=== PATIENT | male | born 1990 | race Two or more races ===

== ENCOUNTER 2022-10-14 03:38 | Emergency (ER) | payer SELFPAY ==
[~2022-10-14] VITALS: Ht 172.7 cm; Wt 77.0 kg
[2022-10-14 04:46] LABS: Basophils # (auto) 0 10 ^3/uL (0-0.2); Basophils % (auto) 0.3 % (0.0-2.0); Eosinophils # (auto) 0.1 10 ^3/uL (0-0.8); Eosinophils % (auto) 2.4 % (0.0-7.0); Hematocrit 41.7 % (41.0-53.0); Hemoglobin 14.6 g/dL (13.5-17.5); Lymphocytes # (auto) 0.9 10 ^3/uL (0.4-5.4); Lymphocytes % (auto) 25.5 % (10.0-50.0); Mean Corpuscular Hemoglobin 28.7 pg (28.0-32.0); Monocytes # (auto) 0.6 10 ^3/uL (0-1.3); Monocytes % (auto) 15.5 % (0.0-12.0); Neutrophils # (auto) 2.1 10 ^3/uL (1.6-8.6); Neutrophils % (auto) 56.3 % (37.0-80.0); Nucleated Red Blood Cells % 0.6 %; Red Blood Cells 5.08 10^6/uL (4.5-5.90); Red Cell Distribution Width 14.8 % (11.8-14.3); White Blood Cell 3.7 10^3/uL (4.4-10.8)
[2022-10-14 05:01] LABS: INR 0.92 (0.9-1.15); Partial Thromboplastin Time 28.2 sec (24.6-33.4)
[2022-10-14 05:03] LABS: Albumin 3.2 g/dL (3.4-5.0); Calcium 7.7 mg/dL (8.5-10.1); Potassium 3.9 mmol/L (3.5-5.1)
[2022-10-14 05:07] LABS: Bilirubin, Total 0.2 mg/dL (0.2-1.0); Total Protein 6.9 g/dL (6.4-8.2)
[2022-10-14] MEDS ORDERED: HYDROcodone-ACET 10/325MG TAB PO ONE (06:45)
[2022-10-14] MEDS ORDERED: HYDR-4902 PO (07:06)
[2022-10-14 09:40] VITALS: BP 107/73
== END 2022-10-14 09:52 | disposition home or self-care (01) ==
LOC: ER 03:38 → EDBD 03:38 → ER 09:46
DX: B34.9 Viral infection, unspecified (principal); F12.90 Cannabis use, unspecified, uncomplicated
CPT/HCPCS: 36415; 71045; 80053; 83735; 83880; 84484; 85025; 85610; 85730; 93005

== ENCOUNTER 2023-12-12 13:07 | Emergency (ER) | payer MEDICAID, OTHER ==
[~2023-12-12] VITALS: Ht 172.7 cm; Wt 72.7 kg
[~2023-12-12 13:07] MED LIST: HYDR-4902 PO
[2023-12-12 13:15] VITALS: BP 135/67; PULSE 117; RESP 18; O2SAT 96
[2023-12-12 13:31] LABS: Basophils # (auto) 0 10 ^3/uL (0-0.2); Basophils % (auto) 0.3 % (0.0-2.0); Eosinophils # (auto) 0 10 ^3/uL (0-0.8); Eosinophils % (auto) 0.1 % (0.0-7.0); Hematocrit 38.9 % (41.0-53.0); Hemoglobin 13.3 g/dL (13.5-17.5); Lymphocytes # (auto) 0.8 10 ^3/uL (0.4-5.4); Lymphocytes % (auto) 4.3 % (10.0-50.0); Mean Corpuscular Hemoglobin 29.3 pg (28.0-32.0); Mean Corpuscular Hgb Conc. 34.2 g/dL (32.0-36.0); Mean Corpuscular Volume 85.7 fL (80.0-100.0); Monocytes # (auto) 1.1 10 ^3/uL (0-1.3); Monocytes % (auto) 6.3 % (0.0-12.0); Neutrophils # (auto) 15.6 10 ^3/uL (1.6-8.6); Red Blood Cells 4.53 10^6/uL (4.5-5.90); White Blood Cell 17.5 10^3/uL (4.4-10.8)
[2023-12-12 13:47] LABS: Alanine Aminotransferase 26 U/L (7-40); Alkaline Phosphatase 82 U/L (46-116); Anion Gap 8 (5-15); Aspartate Aminotransferase 25 U/L (13-40); BUN/Creatinine Ratio 8.8 (10.0-20.0); Blood Urea Nitrogen 8 mg/dL (9-23); Calcium 8.5 mg/dL (8.5-10.1); Carbon Dioxide 23 mmol/L (20-30); Chloride 103 mmol/L (98-107); Glucose 161 mg/dL (74-106); Potassium 3.6 mmol/L (3.5-5.1); Sodium 134 mmol/L (136-145)
[2023-12-12 13:48] LABS: Albumin 4.1 g/dL (3.2-4.8); Bilirubin, Total 0.8 mg/dL (0.2-1.0); Total Protein 7.1 g/dL (5.7-8.2)
[2023-12-12 13:49] LABS: INR 0.97 (0.9-1.15); Partial Thromboplastin Time 26.2 SEC (24.5-34.5); Prothrombin Time 10.3 sec (9.3-11.8)
== END 2023-12-12 14:26 | disposition left against medical advice (07) ==
LOC: ER 13:07
DX: R07.9 Chest pain, unspecified (principal); Z53.21 Procedure and treatment not carried out due to patient leaving prior to being seen by health care provider
CPT/HCPCS: 36415; 71045; 80053; 84484; 85025; 85610; 85730; 93005

== ENCOUNTER 2024-07-03 00:04 | Emergency (ER) | payer MEDICAID ==
[~2024-07-03] VITALS: Ht 172.7 cm; Wt 77.4 kg
--- NOTE | 2024-07-03 00:31 | ED.PDOC ---
History of Present Illness HPI Comments 33-year-old male who came to ER via EMS for nausea and vomiting. Patient states for the past 3 weeks he has been having episodes of nausea and vomiting, unable to keep anything in. Patient was also having hiccups as well. Few days ago patient started having shortness of breath. Patient coming to the ER for further evaluation management. Patient does have complaining of cellulitis, swelling, inflammation over his right butt cheek. Patient appears very anxious at this time. Chief Complaint: Nausea/Vomiting Time Seen by MD: 00:30 Primary Care Provider: UNKNOWN Reviewed Notes: Nurses Notes Allergies: Coded Allergies: NO KNOWN ALLERGIES (Unverified , 10/14/22) Home Meds Active Scripts Hydrocodone-Acetaminophen (Hydrocodone Bitartrate/AC 5-325 mg) 1 Tab Tab, 1 TAB PO DAILY for 5 Days, #5 TAB Prov:JENAE JONES MD 10/14/22 Information Source: Patient Mode of Arrival: EMS Severity: Moderate Timing: Days Duration: Intermittent Past Medical History PAST MEDICAL HISTORY: Denies Surgical History: Denies all surgeries Family History Family History: Reviewed,noncontributory to illness Social History Smoker: Non-Smoker Alcohol: Denies ETOH Use Drugs: Denies Drug Use Lives In: Home Constitutional: denies: chills, diaphoresis, fatigue, fever, malaise, sweats, weakness, others EENTM: denies: blurred vision, double vision, ear bleeding, ear discharge, ear drainage, ear pain, ear ringing, eye pain, eye redness, hearing loss, mouth pain, mouth swelling, nasal discharge, nose bleeding, nose congestion, nose pain, photophobia, tearing, throat pain, throat swelling, voice changes, others Respiratory: reports: SOB at rest, shortness of breath; denies: cough, hemoptysis, orthopnea, SOB with excertion, stridor, wheezing, others Cardiovascular: denies: chest pain, dizzy spells, diaphoresis, Dyspnea on exertion, edema, irregular heart beat, left arm pain, lightheadedness, palpitations, PND, syncope, others Gastrointestinal: reports: nausea, vomiting; denies: abdomen distended, abdominal pain, blood streaked bowels, constipated, diarrhea, dysphagia, difficulty swallowing, hematemesis, melena, poor appetite, poor fluid intake, rectal bleeding, rectal pain, others Genitourinary: denies: burning, dysuria, flank pain, frequency, hematuria, incontinence, penile discharge, penile sore, pain, testicle pain, testicle swelling, urgency, others Neurological: denies: dizziness, fainting, headache, left sided numbness, left sided weakness, numbness, paresthesia, pre-existing deficit, right sided numbness, right sided weakness, seizure, speech problems, tingling, tremors, weakness, others Musculoskeletal: denies: back pain, gout, joint pain, joint swelling, muscle pain, muscle stiffness, neck pain, others Integumetry: denies: bruises, change in color, change in hair/nails, dryness, laceration, lesions, lumps, rash, wounds, others Allergic/Immunocompromised: denies: Difficulty Healing, Frequent Infections, Hives, Itching, others Hematologic/Lymphatic: denies: anemia, blood clots, easy bleeding, easy bruising, swollen glands, others Endocrine: denies: excessive hunger, excessive sweating, excessive thirst, excessive urination, flushing, intolerance to cold, intolerance to heat, unexplained weight gain, unexplained weight loss, others Psychiatric: reports: anxiety; denies: bipolar disorder, depression, hopeless, panic disorder, schizophrenia, sleepless, suicidal, others Physical Exam General Appearance: No Apparent Distress, Normal HEENT: Normal ENT Inspection, Pharynx Normal, TMs Normal Neck: Full Range of Motion, Non-Tender, Normal, Normal Inspection Respiratory: Chest Non-Tender, Lungs Clear, No Accessory Muscle Use, No Respiratory Distress, Normal Breath Sounds Cardiovascular: No Edema, No JVD, No Murmur, No Gallop, Normal Peripheral Pulses, Regular Rate/Rhythm Breast Exam: Deferred Gastrointestinal: No Organomegaly, Non Tender, No Pulsatile Mass, Normal Bowel Sounds, Soft Genitalia: Deferred Pelvic: Deferred Rectal: Deferred Extremities: No calf tenderness, Normal capillary refill, Normal inspection, Normal range of motion, Non-tender, No pedal edema Musculoskeletal : Apperance: Normal Neurologic: Alert, filter press pumper II-XII nml as Tested, No Motor Deficits, Normal Affect, Normal Mood, No Sensory Deficits Cerebellar Function: Normal Reflexes: Normal Skin: Dry, Normal Color, Warm, Other (Cellulitis right butt cheek) Lymphatic: No Adenopathy Was a procedure done? Was a procedure done?: No Differential Dx Considerations may include: Gastritis, dehydration, GERD, anxiety X-Ray, Labs, Meds, VS Vital Signs Date Time Temp Pulse Resp B/P (MAP) Pulse Ox O2 Delivery O2 Flow Rate FiO2 07/03/24 00:35 98.7 87 18 139/60 (86) 97 98.7 07/03/24 00:14 100.0 98 16 138/73 (94) 100 Current Medications Medications (Trade) Dose Ordered Sig/Erin Route Start Time Stop Time Status Last Admin Ondansetron HCl (Zofran Po) 4 mg ONCE ONCE PO 07/03/24 00:30 07/03/24 00:31 DC 07/03/24 00:47 Trimethoprim/ Sulfamethoxazole (Bactrim Ds Tablet) 1 tab ONCE ONCE PO 07/03/24 00:30 07/03/24 00:31 DC 07/03/24 00:48 Time of 1ST Reevaluation: 00:26 Reevaluation 1ST: Unchanged Patient Education/Counseling: Diagnosis, Treatment Family Education/Counseling: No Family Present Departure 1 Departure Time of Disposition: 01:09 (Patient has cellulitis on his buttock and likely suffering for acid reflux. We will discharge patient home) Impression: Primary Impression: Cellulitis Qualified Codes: L03.317 - Cellulitis of buttock Additional Impression: Acid reflux Qualified Codes: K21.9 - Gastro-esophageal reflux disease without esophagitis Disposition: 01 HOME / SELF CARE / HOMELESS Condition: Stable Additional Instructions: You have cellulitis. This is a skin infection. You were prescribed antibiotics. Please take as directed. You can take tylenol and motrin as needed for pain. You also likely have acid reflux that is causing hiccups. It is important that you follow up with your regular doctor within one week to ensure you are doing well. If your symptoms worsen or you have any other concerns then please return to the ER. e-Prescriptions Omeprazole Magnesium (Omeprazole) 20 Mg Tab 20 MG PO DAILY for 14 Days, #14 TAB Prov: MO HASSAN MD 07/03/24 Sulfamethoxazole W/Trimethopri (Bactrim Ds Tablet) 1 Tab Tb 1 TAB PO BID for 7 Days, #14 TAB Prov: MO HASSAN MD 07/03/24 Discharged With: Self Critical Care Note Critical Care Time?: No Stability Stability form required: No Heart Score Heart Score: Heart Score Response (Comments) Value History N/A 0 EKG N/A 0 Age N/A 0 Risk Factors N/A 0 Troponin N/A 0 Total 0 I personally scribed for MO HASSAN MD ([email or web address]) on 07/03/24 at 00:31. Electronically submitted by Irineo Connelly ([email or web address]). MO HASSAN MD Jul 03, 2024 00:31
[2024-07-03 00:35] VITALS: BP 139/60; PULSE 87; RESP 18; TEMP 98.7; O2SAT 97
[2024-07-03] MEDS: ONDANSETRON ODT 4 MG TAB PO ONE (00:47)
[2024-07-03] MEDS: SULFAMETHOX W/TRIMETH(800/160MG) DS TAB PO ONE (00:48)
--- NOTE | 2024-07-03 01:04 | DVH ---
Procedure: XY CHEST TWO VIEWS ROUTINE 07/03/2024 12:40 AM Indication: sob. Comparison: None TECHNIQUE: XY CHEST TWO VIEWS ROUTINE FINDINGS: Medical devices: None. Cardiomediastinal: The heart is normal in size. Pulmonary vasculature is within normal limits. Lungs: No focal pulmonary opacity is seen. The costophrenic angles are clear. No pneumothorax. Bones/soft tissues: No acute abnormality is noted. IMPRESSION: No acute cardiopulmonary disease.
[2024-07-03] MEDS ORDERED: OMEP-434 PO (01:13)
[2024-07-03] MEDS ORDERED: BACDST PO (01:13)
[2024-07-03] MEDS ORDERED: OMEPRAZOLE-SOD BICARB 20 MG POWDER PO SCH ×3 (01:15→10:00)
[2024-07-03] MEDS: PANTOPRAZOLE 40 MG TAB PO ONE (01:39)
[2024-07-04] MEDS ORDERED: CLIN150C18 PO (13:55)
[2024-07-04] MEDS ORDERED: SUCR1TAB PO (14:35)
[2024-07-04] MEDS ORDERED: PANT40T PO (14:39)
== END 2024-07-03 01:49 | disposition home or self-care (01) ==
LOC: ER 00:04 → EDBD 00:04 → ER 01:49
DX: L03.317 Cellulitis of buttock (principal); K21.9 Gastro-esophageal reflux disease without esophagitis
CPT/HCPCS: 71046; 99284; Q0162

== ENCOUNTER 2024-07-03 02:16 | Inpatient (IN) | payer MEDICAID ==
[~2024-07-03] VITALS: Ht 172.7 cm; Wt 78.2 kg
[2024-07-03] VITALS (7 sets, daily range): BP systolic 116–152; BP diastolic 66–86; PULSE 75–96; RESP 12–20; TEMP 99.2–99.8; O2SAT 91–100
[~2024-07-03 02:16] MED LIST changes: +BACDST PO; +OMEP-434 PO
--- NOTE | 2024-07-03 02:41 | ED.PDOC ---
History of Present Illness HPI Comments 23-year-old male who came to ER for nausea and vomiting. Patient was just discharged here about an hour ago for similar complaints, diagnosed with GERD, and cellulitis of right buttocks. As patient was waiting at the ER lobby, he started feeling anxious, became short of breath again, started having intractable hiccups, and was vomiting blackish liquid. Chief Complaint: Nausea/Vomiting Time Seen by MD: 02:41 Primary Care Provider: UNKNOWN Reviewed Notes: Nurses Notes Allergies: Coded Allergies: NO KNOWN ALLERGIES (Unverified , 10/14/22) Home Meds Active Scripts Omeprazole Magnesium (Omeprazole) 20 Mg Tab, 20 MG PO DAILY for 14 Days, #14 TAB Prov:MO HASSAN MD 07/03/24 Sulfamethoxazole W/Trimethopri (Bactrim Ds Tablet) 1 Tab Tb, 1 TAB PO BID for 7 Days, #14 TAB Prov:MO HASSAN MD 07/03/24 Hydrocodone-Acetaminophen (Hydrocodone Bitartrate/AC 5-325 mg) 1 Tab Tab, 1 TAB PO DAILY for 5 Days, #5 TAB Prov:JENAE JONES MD 10/14/22 Information Source: Patient Mode of Arrival: Ambulatory Severity: Moderate Timing: Hours Duration: Since onset Prehospital treatment: None Past Medical History PAST MEDICAL HISTORY: HIV Surgical History: Denies all surgeries Family History Family History: Reviewed,noncontributory to illness Social History Smoker: Non-Smoker Alcohol: Denies ETOH Use Drugs: Denies Drug Use Lives In: Home Constitutional: denies: chills, diaphoresis, fatigue, fever, malaise, sweats, weakness, others EENTM: denies: blurred vision, double vision, ear bleeding, ear discharge, ear drainage, ear pain, ear ringing, eye pain, eye redness, hearing loss, mouth pain, mouth swelling, nasal discharge, nose bleeding, nose congestion, nose pain, photophobia, tearing, throat pain, throat swelling, voice changes, others Respiratory: reports: SOB at rest, shortness of breath; denies: cough, hemoptysis, orthopnea, SOB with excertion, stridor, wheezing, others Cardiovascular: denies: chest pain, dizzy spells, diaphoresis, Dyspnea on exer tion, edema, irregular heart beat, left arm pain, lightheadedness, palpitations, PND, syncope, others Gastrointestinal: reports: nausea, vomiting, others (Hiccups); denies: abdomen distended, abdominal pain, blood streaked bowels, constipated, diarrhea, dysphagia, difficulty swallowing, hematemesis, melena, poor appetite, poor fluid intake, rectal bleeding, rectal pain Genitourinary: denies: burning, dysuria, flank pain, frequency, hematuria, incontinence, penile discharge, penile sore, pain, testicle pain, testicle swelling, urgency, others Neurological: denies: dizziness, fainting, headache, left sided numbness, left sided weakness, numbness, paresthesia, pre-existing deficit, right sided numbness, right sided weakness, seizure, speech problems, tingling, tremors, weakness, others Musculoskeletal: denies: back pain, gout, joint pain, joint swelling, muscle pa in, muscle stiffness, neck pain, others Integumetry: denies: bruises, change in color, change in hair/nails, dryness, laceration, lesions, lumps, rash, wounds, others Allergic/Immunocompromised: denies: Difficulty Healing, Frequent Infections, Hives, Itching, others Hematologic/Lymphatic: denies: anemia, blood clots, easy bleeding, easy bruising, swollen glands, others Endocrine: denies: excessive hunger, excessive sweating, excessive thirst, excessive urination, flushing, intolerance to cold, intolerance to heat, unexplained weight gain, unexplained weight loss, others Psychiatric: reports: anxiety; denies: bipolar disorder, depression, hopeless, panic disorder, schizophrenia, sleepless, suicidal, others Physical Exam General Appearance: No Apparent Distress, Normal HEENT: Normal ENT Inspection, Pharynx Normal, TMs Normal Neck: Full Range of Motion, Non-Tender, Normal, Normal Inspection Respiratory: Chest Non-Tender, Lungs Clear, No Accessory Muscle Use, No Respiratory Distress, Normal Breath Sounds Cardiovascular: No Edema, No JVD, No Murmur, No Gallop, Normal Peripheral Pulses, Regular Rate/Rhythm Breast Exam: Deferred Gastrointestinal: No Organomegaly, Non Tender, No Pulsatile Mass, Normal Bowel Sounds, Soft Genitalia: Deferred Pelvic: Deferred Rectal: Deferred Extremities: No calf tenderness, Normal capillary refill, Normal inspection, Normal range of motion, Non-tender, No pedal edema Musculoskeletal : Apperance: Normal Neurologic: Alert, news assistant II-XII nml as Tested, No Motor Deficits, Normal Affect, Normal Mood, No Sensory Deficits Cerebellar Function: Normal Reflexes: Normal Skin: Dry, Normal Color, Warm, Other (Cellulitis right buttocks) Lymphatic: No Adenopathy Was a procedure done? Was a procedure done?: No Differential Dx Considerations may include: Gastritis, GERD, anxiety, shortness of breath X-Ray, Labs, Meds, VS Vital Signs Date Time Temp Pulse Resp B/P (MAP) Pulse Ox O2 Delivery O2 Flow Rate FiO2 07/03/24 03:00 98.9 82 20 111/82 (92) 96 98.9 07/03/24 03:00 82 20 96 Room Air* 0 21 07/03/24 02:32 99.0 78 20 107/78 (88) 95 Lab Test 07/03/24 02:47 Range/Units White Blood Count 10.2 4.4-10.8 10^3/uL Red Blood Count 4.38 L 4.5-5.90 10^6/uL Hemoglobin 12.1 L 13.5-17.5 g/dL Hematocrit 36.2 L 41.0-53.0 % Mean Corpuscular Volume 82.6 80.0-100.0 fL Mean Corpuscular Hemoglobin 27.6 L 28.0-32.0 pg Mean Corpuscular Hemoglobin Concent 33.4 32.0-36.0 g/dL Red Cell Distribution Width 16.6 H 11.8-14.3 % Platelet Count 433 140-450 10^3/uL Mean Platelet Volume 7.0 6.9-10.8 fL Neutrophils (%) (Auto) 66.7 37.0-80.0 % Lymphocytes (%) (Auto) 21.2 10.0-50.0 % Monocytes (%) (Auto) 9.8 0.0-12.0 % Eosinophils (%) (Auto) 2.1 0.0-7.0 % Basophils (%) (Auto) 0.2 0.0-2.0 % Neutrophils # (Auto) 6.8 1.6-8.6 10 ^3/uL Lymphocytes # (Auto) 2.2 0.4-5.4 10 ^3/uL Monocytes # (Auto) 1.0 0-1.3 10 ^3/uL Eosinophils # (Auto) 0.2 0-0.8 10 ^3/uL Basophils # (Auto) 0 0-0.2 10 ^3/uL Nucleated Red Blood Cells 0.0 % Sodium Level 133 L 136-145 mmol/L Potassium Level 4.3 3.5-5.1 mmol/L Chloride Level 103 98-107 mmol/L Carbon Dioxide Level 26 20-31 mmol/L Anion Gap 4 L 5-15 Blood Urea Nitrogen 11 9-23 mg/dL Creatinine 0.83 0.700-1.30 mg/dL Glomerular Filtration Rate Calc 117 >90 mL/min BUN/Creatinine Ratio 13.3 10.0-20.0 Serum Glucose 96 74-106 mg/dL Calcium Level 9.0 8.7-10.4 mg/dL Current Medications Medications (Trade) Dose Ordered Sig/Erin Route Start Time Stop Time Status Last Admin Haloperidol Lactate (Haldol) 10 mg ONCE ONCE IM 07/03/24 02:45 07/03/24 02:46 DC 07/03/24 03:03 Time of 1ST Reevaluation: 02:38 Reevaluation 1ST: Unchanged Patient Education/Counseling: Diagnosis, Treatment Family Education/Counseling: No Family Present Departure 1 Departure Time of Disposition: 03:30 (Patient presented here earlier for nausea and vomiting. Patient was initially discharged home. Patient returns still unable to tolerate p.o.. Patient will be admitted for intractable nausea and vomiting) Impression: Primary Impression: Projectile vomiting with nausea Additional Impression: Intractable hiccups Disposition: ADMITTED INPATIENT Admit to: Med Surg Condition: Serious Critical Care Note Critical Care Time?: No Stability Stability form required: No Heart Score Heart Score: Heart Score Response (Comments) Value History N/A 0 EKG N/A 0 Age N/A 0 Risk Factors N/A 0 Troponin N/A 0 Total 0 I personally scribed for MO HASSAN MD ([email or web address]) on 07/03/24 at 02:41. Electronically submitted by Irineo Connelly ([email or web address]). MO HASSAN MD Jul 03, 2024 02:41
[2024-07-03] MEDS: HALOPERIDOL LACTATE 5 MG/ML INJ VIAL IM ONE (03:03)
[2024-07-03 03:18] LABS: Chloride 103 mmol/L (98-107); Potassium 4.3 mmol/L (3.5-5.1); Sodium 133 mmol/L (136-145)
[2024-07-03 03:19] LABS: Anion Gap 4 (5-15); Basophils # (auto) 0 10 ^3/uL (0-0.2); Basophils % (auto) 0.2 % (0.0-2.0); Carbon Dioxide 26 mmol/L (20-31); Eosinophils # (auto) 0.2 10 ^3/uL (0-0.8); Eosinophils % (auto) 2.1 % (0.0-7.0); Hematocrit 36.2 % (41.0-53.0); Hemoglobin 12.1 g/dL (13.5-17.5); Lymphocytes # (auto) 2.2 10 ^3/uL (0.4-5.4); Lymphocytes % (auto) 21.2 % (10.0-50.0); Mean Corpuscular Hemoglobin 27.6 pg (28.0-32.0); Mean Corpuscular Hgb Conc. 33.4 g/dL (32.0-36.0); Mean Corpuscular Volume 82.6 fL (80.0-100.0); Monocytes % (auto) 9.8 % (0.0-12.0); Neutrophils # (auto) 6.8 10 ^3/uL (1.6-8.6); Neutrophils % (auto) 66.7 % (37.0-80.0); Platelet Count (auto) 433 10^3/uL (140-450); Red Blood Cells 4.38 10^6/uL (4.5-5.90); Red Cell Distribution Width 16.6 % (11.8-14.3); White Blood Cell 10.2 10^3/uL (4.4-10.8)
[2024-07-03 03:24] LABS: BUN/Creatinine Ratio 13.3 (10.0-20.0); Blood Urea Nitrogen 11 mg/dL (9-23); Glucose 96 mg/dL (74-106)
[2024-07-03] MEDS: SODIUM CHLORIDE 0.9% 1,000 ML IV SCH (04:45)
[2024-07-03] MEDS ORDERED: NITROGLYCERIN 0.4 MG SL TAB SL PRN (04:45)
[2024-07-03] MEDS ORDERED: ACETAMINOPHEN 325 MG TAB PO PRN (04:45)
[2024-07-03] MEDS ORDERED: ONDANSETRON HCL 4 MG/2 ML VIAL IV PRN (04:45)
[2024-07-03] MEDS ORDERED: MORPHINE SULFATE INJ 2 MG/ml SYRG IV PRN ×2 (04:45)
--- NOTE | 2024-07-03 04:57 | DVHHPRES ---
History of Present Illness Resident Creating Document: IFEOMA GUEVARA RESIDENT History of Present Illness ZACK ALANIS is a 33 years old male with PMH of HIV and syphilis presented to the ED with the complaints of severe acid reflux with nausea for 3 weeks. Patient reported he has been having severe acid reflux associated with hiccups, nausea and vomiting, sometimes dark vomitus which prompted him to visit ED. patient also reported he has been having swelling on right buttock which is painful. On my assessment patient denies fever, chills, chest pain, diarrhea and other acute associated symptoms. Patient presented here earlier for nausea and vomiting, initially discharged home. Patient returns because still unable to tolerate p.o. Past Medical History HIV syphilis Past Surgical History: None Family History: None Past Social History Lives with mom. Smokes marijuana but denies alcohol and tobacco abuse. Former methamphetamine abuser stopped 6 months ago Review of Systems Constitutional: No: Fever, Chills, Sweats, Weakness, Malaise, Other Eyes: No: Pain, Vision change, Conjunctivae inflammation, Eyelid inflammation, Other, Redness ENT: Other (Hiccups); No: Ear pain, Ear discharge, Nose pain, Nose discharge, Nose congestion, Mouth pain, Mouth swelling, Throat pain, Throat swelling Respiratory: Other; No: Cough, Dry, Shortness of breath, SOB with excertion, Wheezing, Hemoptysis, Pleuritic Pain, Sputum, Wheezing Cardiovascular: No: Chest Pain, Palpitations, Orthopnea, Paroxysmal Noc. Dyspnea, Edema, Lt Headedness, Other Gastrointestinal: Nausea, Vomiting, Other (Heartburn) Genitourinary: No Dysuria, No Frequency, No Incontinence, No Hematuria, No Retention, No Other Musculoskeletal: No: other, neck pain, shoulder pain, arm pain, back pain, hand pain, leg pain, foot pain Skin: Other (Right buttock abscess) Allergies: Coded Allergies: NO KNOWN ALLERGIES (Unverified , 10/14/22) Medications Current Medications Medications Dose Ordered Sig/Erin Route Start Time Stop Time Status Last Admin Dose Admin Sodium Chloride 1,000 ml @ 60 mls/hr [id number] IV 07/03/24 04:45 Ondansetron HCl 4 mg Q4HP PRN IV 07/03/24 04:45 Acetaminophen 650 mg Q6HP PRN PO 07/03/24 04:45 Morphine Sulfate 2 mg Q4HPRN PRN IV 07/03/24 04:45 Nitroglycerin 0.4 mg Q5MINP PRN SL 07/03/24 04:45 Morphine Sulfate 2 mg Q30M PRN IV 07/03/24 04:45 Pantoprazole Sodium 40 mg BID IV 07/03/24 04:45 UNV Exam Vital Signs Vital Signs Date Time Temp Pulse Resp B/P (MAP) Pulse Ox O2 Delivery O2 Flow Rate FiO2 07/03/24 04:28 82 20 96 Room Air* 0 21 07/03/24 03:00 98.9 111/82 (92) 98.9 Exam Pt is lying on bed General Appearance: Alert, Oriented X3, Cooperative, Not in acute distress HEENT: Atraumatic, Mucous membranes moist/pink Respiratory: Clear to auscultation, Normal air movement, No added sounds Cardiovascular: Regular rate, Normal S1, Normal S2, No murmurs Abdominal: Active bowel sounds, Soft, no distention, no tenderness Extremities: No edema, Normal pulses, No tenderness/swelling Skin: Swelling in the left buttock, tender, erythema, warmth Neuro: Normal speech, sensorimotor deficits none Psych/Mental Status: Mental status NL, Mood NL Nurse was there as sharperone during examination Labs/Xrays Labs Test 07/03/24 02:47 Range/Units White Blood Count 10.2 4.4-10.8 10^3/uL Red Blood Count 4.38 L 4.5-5.90 10^6/uL Hemoglobin 12.1 L 13.5-17.5 g/dL Hematocrit 36.2 L 41.0-53.0 % Mean Corpuscular Volume 82.6 80.0-100.0 fL Mean Corpuscular Hemoglobin 27.6 L 28.0-32.0 pg Mean Corpuscular Hemoglobin Concent 33.4 32.0-36.0 g/dL Red Cell Distribution Width 16.6 H 11.8-14.3 % Platelet Count 433 140-450 10^3/uL Mean Platelet Volume 7.0 6.9-10.8 fL Neutrophils (%) (Auto) 66.7 37.0-80.0 % Lymphocytes (%) (Auto) 21.2 10.0-50.0 % Monocytes (%) (Auto) 9.8 0.0-12.0 % Eosinophils (%) (Auto) 2.1 0.0-7.0 % Basophils (%) (Auto) 0.2 0.0-2.0 % Neutrophils # (Auto) 6.8 1.6-8.6 10 ^3/uL Lymphocytes # (Auto) 2.2 0.4-5.4 10 ^3/uL Monocytes # (Auto) 1.0 0-1.3 10 ^3/uL Eosinophils # (Auto) 0.2 0-0.8 10 ^3/uL Basophils # (Auto) 0 0-0.2 10 ^3/uL Nucleated Red Blood Cells 0.0 % Sodium Level 133 L 136-145 mmol/L Potassium Level 4.3 3.5-5.1 mmol/L Chloride Level 103 98-107 mmol/L Carbon Dioxide Level 26 20-31 mmol/L Anion Gap 4 L 5-15 Blood Urea Nitrogen 11 9-23 mg/dL Creatinine 0.83 0.700-1.30 mg/dL Glomerular Filtration Rate Calc 117 >90 mL/min BUN/Creatinine Ratio 13.3 10.0-20.0 Serum Glucose 96 74-106 mg/dL Calcium Level 9.0 8.7-10.4 mg/dL Assessment/Plan Assessment/Plan # ? Esophagitis vs gastritis # ? Possible candidal esophagitis given history of HIV # GERD # hematemesis -currently on Protonix -NPO -Zofran as needed -GI [facility] operations consultant evaluation if needed # right buttock abscess -ordered surgical consult for possible I and D -currently on clindamycin # marijuana abuse disorder -counseled regarding cessation for more than 17 minutes # HIV -resume home meds No VTE PPX now Protonix NPO Goals of care discussed with the patient for more than 27 minutes: Full code sta tus Case management discussed with Dr. Smith, patient and nurse Plan discussed with: Patient My Orders Orders - IFEOMA GUEVARA RESIDENT Procedure Category Date Status Time Admit ADMIT 07/03/24 Transmitted 04:34 Allergies TANIKA 07/03/24 In Process 04:34 Code Status CODE 07/03/24 Transmitted 04:34 Sodium Chloride 0.9% PHA 07/03/24 In Process 04:45 Ondansetron Hcl PHA 07/03/24 In Process (Zofran) 04:45 Npo (Nothing By DIET 07/03/24 Transmitted Mouth) Diet Breakfast Acetaminophen Tablet PHA 07/03/24 In Process (Tylenol Tablet) 04:45 Morphine Sulfate PHA 07/03/24 In Process Injection 04:45 Nitroglycerin PHA 07/03/24 In Process Sublingual (Ntrostat 04:45 Morphine Sulfate PHA 07/03/24 In Process Injection 04:45 Oxygen By Nasal RT 07/03/24 Transmitted Cannula 04:34 Stat Ekg For Chest [facility] 07/03/24 In Process Pain 04:34 Notify Md Of Changes TANIKA 07/03/24 In Process From Base 04:34 Mission Planner For [facility] 07/03/24 In Process 24 Hours 04:34 Emergency Dysrhythmia [facility] 07/03/24 In Process Protocol 04:34 Rhythm Strips Once [facility] 07/03/24 In Process Every Shift 04:34 Complete Blood Count LAB 07/03/24 Logged 06:34 Comprehensive LAB 07/03/24 Logged Metabolic Panel 06:34 Drug Screen LAB 07/03/24 Logged 06:34 Blood Alcohol LAB 07/03/24 Logged 06:34 Urinalysis LAB 07/03/24 Logged 06:34 Pantoprazole PHA 07/03/24 In Process (Protonix) 04:45 Clindamycin 300mg Iv PHA 07/03/24 In Process (Cleocin Iv) 04:45 * Surgical Consult CONS 07/03/24 Transmitted * [facility] Residence Supervisor CONS 07/03/24 Verified 04:52 Date of Service: Jul 03, 2024 Billing Provider: GRICELDA SMITH MD Common Visit Codes: [id number] INP/OBS CARE (HIGH) Secondary Visit Codes: [id number] CARE PLAN 30 MINUTES IFEOMA GUEVARA RESIDENT Jul 03, 2024 04:57 GRICELDA SMITH MD Jul 03, 2024 12:55
[2024-07-03] MEDS: CLINDAMYCIN 300MG IV 50 ML IV ONE (05:29)
[2024-07-03] MEDS: PANTOPRAZOLE 40 MG/10 ML VIAL INJ IV SCH (05:29)
[2024-07-03 06:10] LABS: Basophils # (auto) 0 10 ^3/uL (0-0.2); Basophils % (auto) 0.2 % (0.0-2.0); Eosinophils # (auto) 0.2 10 ^3/uL (0-0.8); Eosinophils % (auto) 1.8 % (0.0-7.0); Hematocrit 33.2 % (41.0-53.0); Hemoglobin 11.4 g/dL (13.5-17.5); Lymphocytes # (auto) 1.4 10 ^3/uL (0.4-5.4); Lymphocytes % (auto) 16.8 % (10.0-50.0); Mean Corpuscular Hemoglobin 28.1 pg (28.0-32.0); Mean Corpuscular Hgb Conc. 34.4 g/dL (32.0-36.0); Mean Corpuscular Volume 81.7 fL (80.0-100.0); Monocytes # (auto) 0.8 10 ^3/uL (0-1.3); Neutrophils # (auto) 6.2 10 ^3/uL (1.6-8.6); Neutrophils % (auto) 72.2 % (37.0-80.0); Platelet Count (auto) 370 10^3/uL (140-450); Red Blood Cells 4.07 10^6/uL (4.5-5.90); Red Cell Distribution Width 16.6 % (11.8-14.3); White Blood Cell 8.6 10^3/uL (4.4-10.8)
[2024-07-03 06:20] LABS: Alanine Aminotransferase 130 U/L (7-40); Albumin 3.4 g/dL (3.2-4.8); Alkaline Phosphatase 116 U/L (46-116); Anion Gap 6 (5-15); Aspartate Aminotransferase 69 U/L (13-40); BUN/Creatinine Ratio 12.1 (10.0-20.0); Blood Alcohol < 3.0 mg/dL (<10); Blood Urea Nitrogen 11 mg/dL (9-23); Calcium 8.8 mg/dL (8.7-10.4); Carbon Dioxide 24 mmol/L (20-31); Chloride 104 mmol/L (98-107); Glucose 91 mg/dL (74-106); INR 0.99 (0.9-1.15); Partial Thromboplastin Time 28.1 SEC (24.5-34.5); Potassium 4.3 mmol/L (3.5-5.1); Prothrombin Time 10.5 sec (9.3-11.8); Sodium 134 mmol/L (136-145)
[2024-07-03 06:21] LABS: Bilirubin, Total 0.3 mg/dL (0.2-1.0); Total Protein 7.3 g/dL (5.7-8.2)
[2024-07-03] MEDS: NYSTATIN (MOUTH-THROAT) 500,000 UNITS/5 ML SUSP MT ONE (06:59)
[2024-07-03] MEDS ORDERED: SODIUM CHLORIDE 0.9% 500 ML IV ONE (07:30)
[2024-07-03] MEDS ORDERED: LORazepam 2MG/ML-1ML VIAL IV PRN (07:30)
[2024-07-03] MEDS: SODIUM CHLORIDE 0.9% 1,000 ML IV ONE (07:34)
--- NOTE | 2024-07-03 07:58 | DVHPNRES ---
Progress Note Date Seen: Jul 03, 2024 Resident Creating Document: FRANCISCO CHUNG RESIDENT Medical Necessity Reason Pt with a Central, PICC or Fol: No Subjective Review of Systems 33-year-old male with past medical history of HIV and syphilis presented to the ED with chief complaint of burning chest pain, acid reflux and nausea vomiting for last three weeks. Patient was recently in the ER for GERD like symptoms and was discharged but later presented in the ER again for complaints of black colored vomiting. The last episode was at four in the morning in the ER. He did not mentioned any complaints of headache, abdominal pain, diarrhea, melena, hematochezia, constipation. He denied any history of NSAIDs use, any blood thinner, recent EGD/colonoscopy. Patient seen and examined at bedside. Patient is mentioning of improvement in his symptoms but still complaints of burning chest pain. He is not having any active nausea. He is complaining of a wound on the right buttock. ROS Constitutional: No: Fever, Chills, Sweats, Weakness, Malaise, Other Eyes: No: Pain, Vision change, Conjunctivae inflammation, Eyelid inflammation, Other, Redness ENT: No: Ear pain, Ear discharge, Nose pain, Nose discharge, Nose congestion, Mouth pain, Mouth swelling, Throat pain, Throat swelling, Other Respiratory: No: Cough, Dry, Shortness of breath, SOB with excertion, Wheezing, Hemoptysis, Pleuritic Pain, Sputum, Wheezing, Other Cardiovascular: No: Chest Pain, Palpitations, Orthopnea, Paroxysmal Noc. Dyspnea, Edema, Lt Headedness, Other Gastrointestinal: Nausea/vomiting/hematemesis/burning chest pain/acid reflux No:, Abdominal Pain, Diarrhea, Constipation, Melena, Hematochezia, Other Musculoskeletal: No: other, neck pain, shoulder pain, arm pain, back pain, hand pain, leg pain, foot pain Neurological:; No: Weakness, Numbness, Incoordination, Change in speech, Confusion, Seizures Dermatological: Right-sided buttock wound Objective vital signs Vital Sign Date Time Temp Pulse Resp B/P (MAP) Pulse Ox O2 Delivery O2 Flow Rate FiO2 07/03/24 05:00 98.9 78 16 98/53 (68) 98 98.9 07/03/24 04:28 Room Air* 0 21 medications Current Medications Medications Dose Ordered Sig/Erin Route Start Time Stop Time Status Last Admin Dose Admin Sodium Chloride 1,000 ml @ 60 mls/hr [id number] IV 07/03/24 04:45 07/03/24 04:45 60 MLS/HR Ondansetron HCl 4 mg Q4HP PRN IV 07/03/24 04:45 Acetaminophen 650 mg Q6HP PRN PO 07/03/24 04:45 Morphine Sulfate 2 mg Q4HPRN PRN IV 07/03/24 04:45 Nitroglycerin 0.4 mg Q5MINP PRN SL 07/03/24 04:45 Morphine Sulfate 2 mg Q30M PRN IV 07/03/24 04:45 Pantoprazole Sodium 40 mg BID IV 07/03/24 04:45 07/03/24 05:29 40 MG Nystatin 5 ml QID MT 07/03/24 12:00 Examination Examination General Appearance: Alert, Oriented X3, Cooperative, No acute distress HEENT: EOMI Respiratory: Clear to auscultation, Normal air movement Cardiovascular: Regular rate, Normal S1, Normal S2 Abdominal: Normal bowel sounds Extremities: No cyanosis, No edema, Normal pulses, No tenderness/swelling Skin: Furuncle on right buttock Neuro: Normal speech and tone laboratory and microbiology Laboratory Tests 07/03/24 05:00 Test 07/03/24 05:00 Range/Units Serum Glucose 91 74-106 mg/dL Labs and/or images reviewed: Labs reviewed by me, Image(s) reviewed by me Problem List/Assessment/Plan Problem List/Assessment/Plan Assessment/plan # upper GI bleed in the setting of HIV, ? Esophagitis, other causes not ruled out -NPO GI consult IV fluids H&H q.12 IV Protonix 80 mg once followed by 40 mg b.i.d. Liver ultrasound -ordered fluconazole 400 mg once followed by 200 mg b.i.d, EKG did not show any QTC prolongation # chest pain, burning likely due to GERD -IV Protonix #right sided buttock skin infection likely furuncle -MRSA screen -Mupirocin topical -wound consult -IV clindamycin # transaminitis -liver ultrasound We will order hepatitis-B and hepatitis-C panel considering history of HIV # right-sided furuncle -ordered mupirocin # history of HIV -patient takes antiretroviral, we will resume once started on diet # history of syphilis -ordered RPR #DVT prophylaxis -SCDs only considering patient's GI bleed Code status discussed with the patient for greater than 20 minutes, full code Case discussion with Dr Mccall Plan discussed with: Patient, Other My Orders My Orders Orders - FRANCISCO CHUNG Procedure Category Date Status Time Chest Portable XY 07/03/24 Taken 07:19 LIVER US 07/03/24 Logged 07:19 Hemoglobin & LAB 07/03/24 Logged Hematocrit 10:00 Hemoglobin & LAB 07/03/24 Logged Hematocrit 22:00 Hemoglobin & LAB 07/04/24 Verified Hematocrit 10:00 Hemoglobin & LAB 07/04/24 Verified Hematocrit 22:00 Hemoglobin & LAB 07/05/24 Verified Hematocrit 10:00 Pantoprazole PHA 07/03/24 Logged (Protonix) 07:30 Electrocardigram EKG 07/03/24 Logged 07:19 Fluconazole PHA 07/03/24 Logged 200mg/100ml (Diflucan 08:00 Fluconazole PHA 07/04/24 Logged 200mg/100ml (Diflucan 10:00 * Wound Consult CONS 07/03/24 Transmitted Wound Culture W/ Gs NATE 07/03/24 Uncollected 07:25 RPR LAB 07/03/24 In Process 07:26 Lorazepam 2mg/Ml Inj PHA 07/03/24 Logged (Ativan Inj) 07:30 Date of Service: Jul 03, 2024 Billing Provider: NYDIA MCCALL DO Common Visit Codes: [id number] INP/OBS CARE(HIGH) FRANCISCO CHUNG RESIDENT Jul 03, 2024 07:58 NYDIA MCCALL DO Jul 06, 2024 19:46
[2024-07-03] MEDS: PANTOPRAZOLE 40 MG/10 ML VIAL INJ IV ONE (08:14)
[2024-07-03] MEDS: FLUCONAZOLE 200MG/100ML 100 ML IV SCH (08:14)
--- NOTE | 2024-07-03 08:17 | DVH ---
CLINICAL INFORMATION: 33 years old, Male; hypotension. TECHNIQUE: Single AP portable chest radiograph was obtained. COMPARISON: XY CHEST PORTABLE on DOS: 12/12/23, XY CHEST PORTABLE on DOS: 10/14/22 FINDINGS: Lungs: Clear. Cardiac: Heart size is within normal limits. Pulmonary vasculature: Unremarkable. Mediastinum/oscar: Unremarkable. Bones: No acute osseous abnormality identified. Other: No other significant findings. IMPRESSION: No evidence of acute disease in the chest.
--- NOTE | 2024-07-03 09:15 | DVH ---
INDICATION: r/o cirrhosis TECHNIQUE: Multiple real-time sonographic images were obtained of the right upper quadrant. COMPARISON: None FINDINGS: The liver demonstrates heterogeneous echotexture without focal mass lesions. The liver mable sures 17.1 cm. There is no intrahepatic or extrahepatic ductal dilatation. The common duct measures 0.3 cm. The gallbladder is without evidence of stone or sludge. The gallbladder wall measures 0.2 cm and is within normal limits. The right kidney measures 11.5 cm. The right kidney is normal in contour, size, and shape. The echo genicity is normal. There is no hydronephrosis. The pancreas is not well visualized due to overlying bowel gas. IMPRESSION: 1. No acute findings identified. 2. Hepatic steatosis.
[2024-07-03 09:19] LABS: Urine Bacteria None Seen /hpf (None Seen); Urine WBC None Seen /hpf (0 - 3)
[2024-07-03 09:32] LABS: Urine Blood Negative /uL (Negative); Urine Clarity Clear (Clear); Urine Protein, UAD Negative (Negative); Urine Specific Gravity 1.009 (1.001-1.035); Urine Urobilinogen Normal (Negative); Urine pH 5.5 (5.0-9.0)
[2024-07-03 09:33] LABS: Urine Color Light-Yellow (Yellow)
[2024-07-03 09:43] LABS: Amphetamine Screen, Urine Neg (NEGATIVE); Benzodiazephine Screen, Urine Neg (NEGATIVE)
[2024-07-03 09:44] LABS: Barbiturate Scree,Urine Neg (NEGATIVE); Cannabinoid Screen, Urine Neg (NEGATIVE); Cocaine Screen, Urine Neg (NEGATIVE); Opiate Scree,Urine Neg (NEGATIVE); Phencyclidine Screen, Urine Neg (NEGATIVE)
[2024-07-03] MEDS: MUPIROCIN 2% OINT 15gm or 22gm TOP ONE (10:11)
[2024-07-03 10:20] LABS: Hematocrit 32.8 % (41.0-53.0)
[2024-07-03] MEDS ORDERED: NYSTATIN (MOUTH-THROAT) 500,000 UNITS/5 ML SUSP MT SCH (12:00)
--- NOTE | 2024-07-03 13:16 | ECG ---
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
[2024-07-03] MEDS ORDERED: DEXTROSE (50%) 50ML SYRG IV PRN (17:00)
[2024-07-03] MEDS: InsuLIN REG 1unit/0.01ml Soln (100units/ml) SC SCH (19:15)
[2024-07-03] MEDS: ACCU-CHEK COMFORT CURVE STRIP VI SCH (19:15)
[2024-07-03 22:05] LABS: Hematocrit 35.7 % (41.0-53.0); Hemoglobin 11.8 g/dL (13.5-17.5)
[2024-07-03] MEDS: CLINDAMYCIN 600MG IV 50 ML IV SCH (22:45)
[2024-07-04] VITALS (8 sets, daily range): BP systolic 91–110; BP diastolic 49–68; PULSE 54–83; RESP 16–18; TEMP 97.8–99.1; O2SAT 93–99
--- NOTE | 2024-07-04 | DVHINCON2 ---
Date of service: Jul 03, [address] Johns Reason for Consultation [place]offe ground emesis History of Present Illness 23-year-old male who came to ER for nausea and vomiting. Patient was just discharged here about an hour ago for similar complaints, diagnosed with GERD, and cellulitis of right buttocks. As patient was waiting at the ER lobby, he started feeling anxious, became short of breath again, started having intractable hiccups, and was vomiting blackish liquid. Past Medical History Marijuana use HIV Allergies: Coded Allergies: NO KNOWN ALLERGIES (Unverified , 10/14/22) Home Meds Active Scripts Omeprazole Magnesium (Omeprazole) 20 Mg Tab, 20 MG PO DAILY for 14 Days, #14 TAB Prov:MO HASSAN MD 07/03/24 Current Medications Current Medications Medications (Trade) Dose Ordered Sig/Erin Route PRN Reason Start Time Stop Time Status Last Admin Sodium Chloride 1,000 ml @ 60 mls/hr [id number] IV 07/03/24 04:45 07/03/24 07:26 DC 07/03/24 04:45 Ondansetron HCl (Zofran) 4 mg Q4HP PRN IV NAUSEA / VOMITING 07/03/24 04:45 Acetaminophen (Tylenol Tablet) 650 mg Q6HP PRN PO PAIN SCALE 1-3 OR TEMP>100.4 07/03/24 04:45 Morphine Sulfate 2 mg Q4HPRN PRN IV SEVERE PAIN (7-10 PAIN SCALE) 07/03/24 04:45 Nitroglycerin (Ntrostat Sublingual) 0.4 mg Q5MINP PRN SL FOR CHEST PAIN 07/03/24 04:45 Morphine Sulfate 2 mg Q30M PRN IV FOR CHEST PAIN 07/03/24 04:45 Pantoprazole Sodium (Protonix) 40 mg BID IV 07/03/24 04:45 07/03/24 22:45 Nystatin (Mycostatin (Mouth-Throat)) 5 ml QID MT 07/03/24 12:00 07/03/24 07:26 DC Fluconazole 100 ml @ 100 mls/hr Q1HR IV 07/03/24 08:00 07/03/24 09:59 DC 07/03/24 09:25 Fluconazole 100 ml @ 100 mls/hr DAILY IV 07/04/24 10:00 Lorazepam (Ativan Inj) 0.5 mg Q12HP PRN IV ANXIETY 07/03/24 07:30 Mupirocin (Bactroban 2% Ointment) 1 applic BID TOP 07/04/24 10:00 Diagnostic Test (Pha) (Accu-Chek Comfort Curve T) 1 strip Q6HR 07/03/24 18:00 07/03/24 19:15 Insulin Human Regular (InsuLIN R) Q6HR SC 07/03/24 18:00 Dextrose 50 ml UD PRN IV Blood Sugar LESS THAN 60 07/03/24 17:00 Clindamycin Phosphate 50 ml @ 50 mls/hr Q8HR IV 07/03/24 22:00 07/03/24 22:45 Vital Signs Vital Signs Date Time Temp Pulse Resp B/P (MAP) Pulse Ox O2 Delivery O2 Flow Rate FiO2 07/03/24 21:00 99.8 96 17 116/66 (83) 91 99.8 07/03/24 18:53 Room Air* 0 21 Physical Exam General Appearance: Alert, Oriented X3, No acute distress HEENT: EOMI; ANIA Respiratory: Clear to auscultation, Normal air movement Cardiovascular: Regular rate, Normal S1, Normal S2 Abdominal: Normal bowel sounds; soft Extremities: No cyanosis, No edema, Normal pulses, No tenderness/swelling; boil on right buttock Neuro: Nonfocal Labs/Diagnostic Data Labs Test 07/03/24 23:32 07/03/24 21:55 07/03/24 10:00 07/03/24 07:40 Range/Units POC Glucose 87 70-106 mg/dl Hemoglobin 11.8 L 13.5-17.5 g/dL Hematocrit 35.7 L 41.0-53.0 % Urine Color Light-yellow Yellow Urine Clarity Clear Clear Urine pH 5.5 5.0-9.0 Urine Specific [place] 1.009 1.001-1.035 Urine Protein Negative Negative Urine Ketones Negative Negative Urine Blood Negative Negative /uL Urine Nitrite Negative Negative Urine Bilirubin Negative Negative Urine Urobilinogen Normal Negative mg/dL Urine Leukocyte Esterase Negative Negative /uL Urine RBC None seen 0 - 3 /hpf Urine WBC None seen 0 - 3 /hpf Urine Squamous Epithelial Cells None seen <5 /hpf Urine Bacteria None seen None Seen /hpf Urine Glucose Normal Normal mg/dL Urine Opiates Screen Neg NEGATIVE Urine Fentanyl Screen Neg NEGATIVE Urine Barbiturates Screen Neg NEGATIVE Urine Phencyclidine Screen Neg NEGATIVE Urine Amphetamines Screen Neg NEGATIVE Urine Benzodiazepines Screen Neg NEGATIVE Urine Cocaine Screen Neg NEGATIVE Urine Cannabinoids Screen Neg NEGATIVE Test 07/03/24 05:00 Range/Units White Blood Count 8.6 4.4-10.8 10^3/uL Red Blood Count 4.07 L 4.5-5.90 10^6/uL Mean Corpuscular Volume 81.7 80.0-100.0 fL Mean Corpuscular Hemoglobin 28.1 28.0-32.0 pg Mean Corpuscular Hemoglobin Concent 34.4 32.0-36.0 g/dL Red Cell Distribution Width 16.6 H 11.8-14.3 % Platelet Count 370 140-450 10^3/uL Mean Platelet Volume 7.2 6.9-10.8 fL Neutrophils (%) (Auto) 72.2 37.0-80.0 % Lymphocytes (%) (Auto) 16.8 10.0-50.0 % Monocytes (%) (Auto) 9.0 0.0-12.0 % Eosinophils (%) (Auto) 1.8 0.0-7.0 % Basophils (%) (Auto) 0.2 0.0-2.0 % Neutrophils # (Auto) 6.2 1.6-8.6 10 ^3/uL Lymphocytes # (Auto) 1.4 0.4-5.4 10 ^3/uL Monocytes # (Auto) 0.8 0-1.3 10 ^3/uL Eosinophils # (Auto) 0.2 0-0.8 10 ^3/uL Basophils # (Auto) 0 0-0.2 10 ^3/uL Nucleated Red Blood Cells 0.0 % Prothrombin Time 10.5 9.3-11.8 sec Prothrombin Time INR 0.99 0.9-1.15 Activated Partial Thromboplast Time 28.1 24.5-34.5 SEC Sodium Level 134 L 136-145 mmol/L Potassium Level 4.3 3.5-5.1 mmol/L Chloride Level 104 98-107 mmol/L Carbon Dioxide Level 24 20-31 mmol/L Anion Gap 6 5-15 Blood Urea Nitrogen 11 9-23 mg/dL Creatinine 0.91 0.700-1.30 mg/dL Glomerular Filtration Rate Calc 113 >90 mL/min BUN/Creatinine Ratio 12.1 10.0-20.0 Serum Glucose 91 74-106 mg/dL Calcium Level 8.8 8.7-10.4 mg/dL Total Bilirubin 0.3 0.2-1.0 mg/dL Aspartate Amino Transferase (AST) 69 H 13-40 U/L Alanine Aminotransferase (ALT) 130 H 7-40 U/L Alkaline Phosphatase 116 46-116 U/L Total Protein 7.3 5.7-8.2 g/dL Albumin 3.4 3.2-4.8 g/dL Plasma/Serum Blood Alcohol < 3.0 <10 mg/dL Liver USG IMPRESSION: 1. No acute findings identified. 2. Hepatic steatosis. Problems(with codes): (1) Intractable hiccups (2) Projectile vomiting with nausea (3) Acid reflux Plan/Recommendation Assessment plan At this time the patient is hemodynamically stable and is H&H is stable Protonix 40 mg IV q.12 hours Carafate 1 g p.o. 4 times a day DC aspirin NSAIDs smoking alcohol Schedule endoscopy on 07/04/2024 NPO after midnight Plan discussed with: Other (Dr Nelson) AYO NOBLE MD Jul 04, 2024 00:00
[2024-07-04 06:33] LABS: Basophils # (auto) 0 10 ^3/uL (0-0.2); Basophils % (auto) 0.2 % (0.0-2.0); Eosinophils # (auto) 0.2 10 ^3/uL (0-0.8); Eosinophils % (auto) 1.9 % (0.0-7.0); Hematocrit 34.4 % (41.0-53.0); Hemoglobin 11.7 g/dL (13.5-17.5); Lymphocytes # (auto) 1.6 10 ^3/uL (0.4-5.4); Lymphocytes % (auto) 19.1 % (10.0-50.0); Mean Corpuscular Hemoglobin 27.9 pg (28.0-32.0); Mean Corpuscular Volume 82.1 fL (80.0-100.0); Monocytes # (auto) 0.9 10 ^3/uL (0-1.3); Monocytes % (auto) 11.1 % (0.0-12.0); Neutrophils # (auto) 5.7 10 ^3/uL (1.6-8.6); Neutrophils % (auto) 67.7 % (37.0-80.0); Platelet Count (auto) 367 10^3/uL (140-450); White Blood Cell 8.4 10^3/uL (4.4-10.8)
[2024-07-04 06:35] LABS: Anion Gap 7 (5-15); Carbon Dioxide 24 mmol/L (20-31); Chloride 104 mmol/L (98-107); Sodium 135 mmol/L (136-145)
[2024-07-04 06:40] LABS: Glucose 83 mg/dL (74-106)
[2024-07-04 06:41] LABS: BUN/Creatinine Ratio 11.5 (10.0-20.0); Blood Urea Nitrogen 12 mg/dL (9-23); Magnesium 1.9 mg/dL (1.6-2.6)
[2024-07-04] MEDS ORDERED: fentaNYL CITRATE 100 MCG/2 ML VL ONE (07:28)
[2024-07-04] MEDS ORDERED: MIDAZOLAM HCL 2MG/2ML 2ml VIAL (1mg/ml) ONE (07:29)
[2024-07-04] MEDS ORDERED: ONDANSETRON HCL 4 MG/2 ML VIAL ONE (07:29)
[2024-07-04] MEDS ORDERED: PROPOFOL 10 MG/ML 20 ML IV ONE (07:29)
[2024-07-04] MEDS ORDERED: GLYCOPYRROLATE 0.2 MG/ML 1ML VIAL ONE (07:29)
--- NOTE | 2024-07-04 08:20 | DVHOP2 ---
Operative Report Operative Report DATE OF OPERATION: 07/04/24 PROCEDURE: Upper Endoscopy with biopsy. PREOPERATIVE INDICATION: The patient is a 33 -year-old male undergoing endoscopy for GERD and coffee-ground emesis POSTOPERATIVE DIAGNOSES: 1. 2 cm sliding-type hiatal hernia with the acute grade B linear erosive esoph agitis with distal esophageal ulcers extending into the distal 3-5 cm of the esophagus from which biopsies were obtained 2. Mild gastritis otherwise normal examination up to the 2nd and 3rd part of the duodenum with no active bleeding no fresh or old blood in the upper GI tract PROCEDURE PERFORMED BY: Ayo Marie GI NURSE: Chiara SCOPE: Olympus videoendoscope. ASA CLASS: PREOPERATIVE MEDICATIONS: Mac sedation, Dr. Beltran PROCEDURE IN DETAIL: After obtaining an informed consent, the patient was placed on left lateral decubitus position. The patient was then sedated with the above medications. A bite block was placed between his teeth. The endoscope was then passed through the oropharynx, into the esophagus, and through the stomach and pylorus up to the second and third part of the duodenum. The endoscope was then withdrawn. The 2nd and 3rd part of the duodenum and the duodenal bulb were normal. There was good bile drainage. Duodenal biopsies were obtained. The pre-pyloric area antrum and body showed mild gastritis with some hyperemia erythema. On retroflexion the fundus cardia and angularis were normal. Gastric biopsies were obtained. There was no fresh or old blood in the upper GI tract. The endoscope was then withdrawn into the distal esophagus where there was a 2 cm sliding-type hiatal hernia with irregular squamocolumnar junction grade B linear erosive esophagitis. There were distal esophageal ulcers extending into the distal 3-5 cm of the esophagus from which biopsies were obtained. The remaining distal and proximal esophagus and oropharynx were unremarkable The patient tolerated the procedure well without difficulty. COMPLICATIONS : None SPECIMENS: Duodenal biopsies Gastric biopsies GE junction biopsies DISPOSITION: Transfer back to the floor Stable PLAN: 1. Await for biopsy result 2. Will place pt on Protonix 40 mg bid 3. Carafate 1 g p.o. twice a day 4. DC aspirin NSAIDs smoking alcohol 5. Patient will be discharged on Protonix 40 mg p.o. daily or Prilosec 20 mg p.o. daily 6. Lifestyle and dietary modifications for GERD 7. Outpatient follow up with GI Services as needed AYO MARIE MD Jul 04, 2024 08:16 AYO MARIE MD Jul 04, 2024 08:20
[2024-07-04] MEDS: MUPIROCIN 2% OINT 15gm or 22gm TOP SCH (10:00)
[2024-07-04 10:12] LABS: Hematocrit 33.8 % (41.0-53.0); Hemoglobin 11.1 g/dL (13.5-17.5)
[2024-07-04] MEDS ORDERED: SODIUM CHLORIDE 0.9% 250 ML IV ONE (10:15)
[2024-07-04] MEDS: SUCRALFATE 1 GM TAB PO SCH (10:56)
[2024-07-04] MEDS: FLUCONAZOLE 200MG/100ML 100 ML IV SCH (10:56)
--- NOTE | 2024-07-04 13:23 | DVHDSRES ---
Discharge Summary Date of Admission Resident Creating Document: JULIETTE WALLACE RESIDENT Jul 03, 2024 at 04:34 Date of Discharge: Jul 04, 2024 Admitting Diagnosis Abd pain, N, V Labs/Diagnostic Data: Laboratory Results Test 07/04/24 11:21 07/04/24 10:00 07/04/24 05:50 07/03/24 21:55 POC Glucose 146 mg/dl (70-106) Hemoglobin 11.1 g/dL (13.5-17.5) Hematocrit 33.8 % (41.0-53.0) White Blood Count 8.4 10^3/uL (4.4-10.8) Red Blood Count 4.20 10^6/uL (4.5-5.90) Mean Corpuscular Volume 82.1 fL (80.0-100.0) Mean Corpuscular Hemoglobin 27.9 pg (28.0-32.0) Mean Corpuscular Hemoglobin Concent 34.0 g/dL (32.0-36.0) Red Cell Distribution Width 17.0 % (11.8-14.3) Platelet Count 367 10^3/uL (140-450) Mean Platelet Volume 6.9 fL (6.9-10.8) Neutrophils (%) (Auto) 67.7 % (37.0-80.0) Lymphocytes (%) (Auto) 19.1 % (10.0-50.0) Monocytes (%) (Auto) 11.1 % (0.0-12.0) Eosinophils (%) (Auto) 1.9 % (0.0-7.0) Basophils (%) (Auto) 0.2 % (0.0-2.0) Neutrophils # (Auto) 5.7 10 ^3/uL (1.6-8.6) Lymphocytes # (Auto) 1.6 10 ^3/uL (0.4-5.4) Monocytes # (Auto) 0.9 10 ^3/uL (0-1.3) Eosinophils # (Auto) 0.2 10 ^3/uL (0-0.8) Basophils # (Auto) 0 10 ^3/uL (0-0.2) Nucleated Red Blood Cells 0.0 % Sodium Level 135 mmol/L (136-145) Potassium Level 4.0 mmol/L (3.5-5.1) Chloride Level 104 mmol/L (98-107) Carbon Dioxide Level 24 mmol/L (20-31) Anion Gap 7 (5-15) Blood Urea Nitrogen 12 mg/dL (9-23) Creatinine 1.04 mg/dL (0.700-1.30) Glomerular Filtration Rate Calc 96 mL/min (>90) BUN/Creatinine Ratio 11.5 (10.0-20.0) Serum Glucose 83 mg/dL (74-106) Calcium Level 9.0 mg/dL (8.7-10.4) Magnesium Level 1.9 mg/dL (1.6-2.6) Test 07/03/24 10:00 07/03/24 07:40 07/03/24 05:00 Urine Color Light-yellow (Yellow) Urine Clarity Clear (Clear) Urine pH 5.5 (5.0-9.0) Urine Specific Corinne 1.009 (1.001-1.035) Urine Protein Negative (Negative) Urine Ketones Negative (Negative) Urine Blood Negative /uL (Negative) Urine Nitrite Negative (Negative) Urine Bilirubin Negative (Negative) Urine Urobilinogen Normal mg/dL (Negative) Urine Leukocyte Esterase Negative /uL (Negative) Urine RBC None seen /hpf (0 - 3) Urine WBC None seen /hpf (0 - 3) Urine Squamous Epithelial Cells None seen /hpf (<5) Urine Bacteria None seen /hpf (None Seen) Urine Glucose Normal mg/dL (Normal) Urine Opiates Screen Neg (NEGATIVE) Urine Fentanyl Screen Neg (NEGATIVE) Urine Barbiturates Screen Neg (NEGATIVE) Urine Phencyclidine Screen Neg (NEGATIVE) Urine Amphetamines Screen Neg (NEGATIVE) Urine Benzodiazepines Screen Neg (NEGATIVE) Urine Cocaine Screen Neg (NEGATIVE) Urine Cannabinoids Screen Neg (NEGATIVE) Prothrombin Time 10.5 sec (9.3-11.8) Prothrombin Time INR 0.99 (0.9-1.15) Activated Partial Thromboplast Time 28.1 SEC (24.5-34.5) Total Bilirubin 0.3 mg/dL (0.2-1.0) Aspartate Amino Transferase (AST) 69 U/L (13-40) Alanine Aminotransferase (ALT) 130 U/L (7-40) Alkaline Phosphatase 116 U/L (46-116) Total Protein 7.3 g/dL (5.7-8.2) Albumin 3.4 g/dL (3.2-4.8) Plasma/Serum Blood Alcohol < 3.0 mg/dL (<10) Other Laboratory Tests 07/04/24 10:00 07/04/24 05:50 Brief Hx & Hospital Course: Perfecto Turner is a 33-year-old male with past medical history of HIV and syphilis presented to the ED with chief complaint of burning chest pain, acid reflux and nausea vomiting for last three weeks. Patient was recently in the ER for GERD like symptoms and was discharged but later presented in the ER again for complaints of black colored vomiting. The last episode was at four in the morning in the ER. He did not mentioned any complaints of headache, abdominal pain, diarrhea, melena, hematochezia, constipation. He denied any history of NSAIDs use, any blood thinner, recent EGD/colonoscopy. During hospital stay, patient was kept NPO, IV Protonix 80 mg once followed by 40 mg b.i.d. given the risk of candidal esophagitis patient was started on fluconazole IV daily. GI was consulted, consequently patient underwent upper EGD 07/04 which showed 2 cm sliding-type hiatal hernia with the acute grade B linear erosive esophagitis with distal esophageal ulcers extending into the distal 3-5 cm of the esophagus from which biopsies were obtained. Mild gastritis otherwise normal examination up to the 2nd and 3rd part of the duodenum with no active bleeding no fresh or old blood in the upper GI tract. Ultrasound was ordered given the transaminitis, showed hepatic steatosis. Patient also right-sided buttock furuncle for which mupirocin topical was started. Patient received clindamycin from 07/03 till 07/04. 07/04/2024-patient is hemodynamically, clinically stable and therefore is discharged home. Patient will be discharged on Protonix 40 mg p.o. daily and Carafate 1 g twice a day and will need to follow up with GI outpatient for biopsy results and further management. Lifestyle and dietary modifications for GERD were discussed. Discharge planning completed with the patient, patient agreed. Patient is advised to follow up with stemming machine operator, Infectious Disease, primary care physician and discharge clinic appointment within 7-14 days. Discharge medication: Clindamycin 150 mg twice daily for the next 5 days, Carafate 1 g q.i.d., pantoprazole 40 mg daily Operations or Procedures Operative Report DATE OF OPERATION: 07/04/24 PROCEDURE: Upper Endoscopy with biopsy. PREOPERATIVE INDICATION: The patient is a 33 -year-old male undergoing endoscopy for GERD and coffee-ground emesis POSTOPERATIVE DIAGNOSES: 1. 2 cm sliding-type hiatal hernia with the acute grade B linear erosive esophagitis with distal esophageal ulcers extending into the distal 3-5 cm of the esophagus from which biopsies were obtained 2. Mild gastritis otherwise normal examination up to the 2nd and 3rd part of the duodenum with no active bleeding no fresh or old blood in the upper GI tract PROCEDURE PERFORMED BY: Deborah Marie GI NURSE: Chiara SCOPE: Olympus videoendoscope. ASA CLASS: PREOPERATIVE MEDICATIONS: Mac sedation, Dr. Beltran PROCEDURE IN DETAIL: After obtaining an informed consent, the patient was placed on left lateral decubitus position. The patient was then sedated with the above medications. A bite block was placed between his teeth. The endoscope was then passed through the oropharynx, into the esophagus, and through the stomach and pylorus up to the second and third part of the duodenum. The endoscope was then withdrawn. The 2nd and 3rd part of the duodenum and the duodenal bulb were normal. There was good bile drainage. Duodenal biopsies were obtained. The pre-pyloric area antrum and body showed mild gastritis with some hyperemia erythema. On retroflexion the fundus cardia and angularis were normal. Gastric biopsies were obtained. There was no fresh or old blood in the upper GI tract. The endoscope was then withdrawn into the distal esophagus where there was a 2 cm sliding-type hiatal hernia with irregular squamocolumnar junction grade B linear erosive esophagitis. There were distal esophageal ulcers extending into the distal 3-5 cm of the esophagus from which biopsies were obtained. The remaining distal and proximal esophagus and oropharynx were unremarkable The patient tolerated the procedure well without difficulty. COMPLICATIONS : None SPECIMENS: Duodenal biopsies Gastric biopsies GE junction biopsies DISPOSITION: Transfer back to the floor Stable PLAN: 1. Await for biopsy result 2. Will place pt on Protonix 40 mg bid 3. Carafate 1 g p.o. twice a day 4. DC aspirin NSAIDs smoking alcohol 5. Patient will be discharged on Protonix 40 mg p.o. daily or Prilosec 20 mg p.o. daily 6. Lifestyle and dietary modifications for GERD 7. Outpatient follow up with GI Services as needed Condition at Discharge: Stable Final Diagnosis/Problems List Acute upper GI bleed sliding hiatal hernia and acute grade B linear erosive esophagitis Distal esophageal ulcer Intractable nausea and vomiting Burning chest pain secondary to GERD right sided buttock skin infection likely furuncle Steatosis and transaminitis Marijuana dependence History of HIV History of syphilis Discharge Disposition: Home Discharge Instruct/Medications Activity: Light activity Follow Up/Referral: Follow up with stemming machine operator as outpatient within 7-14 days Follow up with primary care physician within 7-14 days Follow up with the discharge clinic appointment within 7-14 days Follow up with Infectious Disease as outpatient within 7-14 Medications: Per EMR Discharge Statement: "Patient was advised to return to the ER or call 911 if any headaches, dizziness, shortness of breath, chest pain, abdominal pain, bleeding, fevers, or worsening of medical condition. Patient was counseled about treatment plan, medications, possible side effects, patientverbalized understanding. All questions were answered to the best of my ability. This discharge took greater then 30 minutes in planning, reviewing documentation, counseling the patient, and discussing with other team members." ASSESSMENT ASSESSMENT Assessment Date of Service: Jul 04, 2024 Billing Provider: NYDIA MCCALL DO Common Visit Codes: 58626-VXV/OBS DISCH DAY >30min JULIETTE WALLACE RESIDENT Jul 04, 2024 13:23 NYDIA MCCALL DO Jul 06, 2024 19:47
[2024-07-04] MEDS ORDERED: CLIN150C18 PO (13:55)
[2024-07-04] MEDS ORDERED: SUCR1TAB PO (14:35)
[2024-07-04] MEDS ORDERED: PANT40T PO (14:39)
[2024-07-05] MEDS ORDERED: PANTOPRAZOLE 40 MG TAB PO SCH (06:00)
[2024-07-05 08:56] LABS: Hepatitis B Surface Antigen Negative (Negative)
[2024-07-05 09:05] LABS: Hepatitis B Core Total AB Negative (Negative)
[2024-07-05 09:16] LABS: Hepatitis C Antibody Negative (Negative)
[2024-07-05 09:29] LABS: Hepatitis A Total Antibody Positive (Negative); Hepatitis B Surface Antibody Positive (Negative); Hepatitis B Surface Antigen Negative (Negative); Hepatitis C Antibody Negative (Negative)
== END 2024-07-04 19:59 | disposition home or self-care (01) | DRG 241 ==
LOC: ER 02:16 → OVERFLOW 04:34 → CENTRAL 18:52
PROVIDERS: ADMIT Internal Medicine; ATTEND Internal Medicine
PROC: 0DB68ZX Excision of Stomach, Via Natural or Artificial Opening Endoscopic, Diagnostic (ICD-10-PCS; 2024-07-04)
PROC: 0DB48ZX Excision of Esophagogastric Junction, Via Natural or Artificial Opening Endoscopic, Diagnostic (ICD-10-PCS; 2024-07-04)
PROC: 0DB98ZX Excision of Duodenum, Via Natural or Artificial Opening Endoscopic, Diagnostic (ICD-10-PCS; principal; 2024-07-04 07:45)
DX: K29.71 Gastritis, unspecified, with bleeding (principal); K22.11 Ulcer of esophagus with bleeding; K76.0 Fatty (change of) liver, not elsewhere classified; K21.9 Gastro-esophageal reflux disease without esophagitis; F12.10 Cannabis abuse, uncomplicated; R06.6 Hiccough; L02.31 Cutaneous abscess of buttock; R74.01 Elevation of levels of liver transaminase levels; K44.9 Diaphragmatic hernia without obstruction or gangrene; L03.317 Cellulitis of buttock; F41.9 Anxiety disorder, unspecified; Z79.899 Other long term (current) drug therapy
CPT/HCPCS: 36415; 71045; 76705; 80048; 80053; 80307; 80320; 81001; 82962; 83735; 85014; 85018; 85025; 85610; 85730; 86592; 86704; 86706; 86708; 86803; 86850; 86900; 86901; 87081; 87340; 93005; G0378; J1450; J1815; J2250; J2405; J2470; J2704; J3490